=== PATIENT | male | born 1975 | race Caucasian/White ===

== ENCOUNTER 2022-01-02 15:19 | Emergency (ER) | payer BC, OTHER ==
[~2022-01-02] VITALS: Ht 167.6 cm; Wt 100.0 kg
[2022-01-02 16:18] VITALS: BP 124/79
[2022-01-02] MEDS ORDERED: dexamethasone sod phosphate 10mg/ml inj IV STA (16:43)
[2022-01-02] MEDS ORDERED: normal saline 1000ML IV soln IVB ONE (16:45)
[2022-01-02] MEDS ORDERED: BEBTELOVIMAB 175 MG/2 ML VIAL IV ONE (16:45)
[2022-01-02] MEDS ORDERED: ketorolac trometh. 30mg/ml inj. IV ONE (17:30)
[2022-01-02] MEDS ORDERED: ALBU6.7H14 INH (18:13)
[2022-01-02] MEDS ORDERED: BUDE180A INH (18:13)
[2022-01-02] MEDS ORDERED: DEXA6TAB PO (18:13)
[2022-01-02] MEDS ORDERED: AMOX-117 PO (18:13)
== END 2022-01-02 18:38 | disposition home or self-care (01) ==
LOC: ER 15:20
DX: U07.1 COVID-19 (principal); J12.82 Pneumonia due to coronavirus disease 2019; F17.200 Nicotine dependence, unspecified, uncomplicated; Z72.89 Other problems related to lifestyle; Z79.899 Other long term (current) drug therapy
CPT/HCPCS: 71045; 96360; 99283; J7030

== ENCOUNTER 2022-04-16 18:33 | Emergency (ER) | payer SELFPAY ==
[~2022-04-16] VITALS: Ht 167.6 cm; Wt 102.3 kg
[~2022-04-16 18:33] MED LIST: ALBU6.7H14 INH; BUDE180A INH; DEXA6TAB PO
[2022-04-16 18:40] VITALS: BP 140/90
== END 2022-04-17 01:02 | disposition left against medical advice (07) ==
LOC: ER 18:33
DX: N50.82 Scrotal pain (principal); Z53.21 Procedure and treatment not carried out due to patient leaving prior to being seen by health care provider